=== PATIENT | female | born 1975 | race Caucasian/White ===

== ENCOUNTER 2017-06-14 11:08 | Outpatient (CLI) | payer OTHER ==
--- NOTE | 2017-06-14 15:06 | RAD ---
CERVICAL SPINE: Three views. HISTORY: Chronic neck pain. FINDINGS: There are moderate degenerative changes noted at the C5-6 level. There is loss of disk space at this level and there are anterior osteophytes and posterior spondylitic changes at this level. The other disk spaces are maintained. No other significant degenerative change. Vertebral body heig ht and alignment is preserved. IMPRESSION: There are moderate degenerative changes at the C5-6 level as described. POS: [facility]
--- NOTE | 2017-06-14 15:16 | RAD ---
THREE VIEWS THORACIC SPINE: Date: 06-14-17 History: Chronic back pain. FINDINGS: There is slight right convex curvature of the thoracic spine. Vertebral body heights are within rick l limits. No fracture or subluxation is seen. No other findings. IMPRESSION: No acute fracture or subluxation involving the thoracic spine. POS: [facility]
--- NOTE | 2017-06-14 15:29 | RAD ---
THERE VIEWS LUMBAR SPINE: Date: 06-14-17 History: Chronic back pain. FINDINGS: Five lumbar type vertebral bodies are present with intact pedicles on frontal imaging. There is mild dextroscoliosis of the lumbar spine. The lateral exam demonstrates normal vertebral body height and a lignment. There is L4-5 facet hypertrophy. No acute osseous abnormality seen. IMPRESSION: No acute osseous abnormality seen. POS: [facility]
== END 2017-06-14 11:09 | disposition home or self-care (01) ==
LOC: MADRAD 11:08
PROVIDERS: ATTEND Family Medicine
DX: M62.830 Muscle spasm of back (principal); M47.892 Other spondylosis, cervical region
CPT/HCPCS: 72040; 72072; 72100